=== PATIENT | male | born 1960 | race Caucasian/White ===

== ENCOUNTER 2016-11-08 13:43 | Emergency (ER) | payer MEDICARE, OTHER ==
[2016-11-08] MEDS ORDERED: Sodium Chloride 0.9% 1,000 ML IV ONE (14:13)
--- NOTE | 2016-11-08 14:19 | C.PDOC ---
History Of Present Illness 46 y/o male brought to ED who, per EMS who spoke to home health aide who called in missings person report, patient walked out of his home this morning without notifying his home health aide. Patient has a hx of DM and bipolar. Patient was found wandering the streets and was brought in by EMS. Patient denies any somatic complaints but is speaking in gibberish and appears altered. Awake and alert only to himself. Time Seen by Provider: 11/08/16 13:57 Chief Complaint (Nursing): Altered Mental Status History Per: EMS, Other (homemaker) History/Exam Limitations: Clinical Condition Onset/Duration Of Symptoms: Unknown Usual Baseline: Unknown Past Medical History Reviewed: Historical Data, Nursing Documentation, Vital Signs Vital Signs: Last Vital Signs Temp 98.0 F 11/08/16 16:05 Pulse 91 H 11/08/16 16:05 Resp 18 11/08/16 16:05 BP 128/81 11/08/16 16:05 Pulse Ox 99 11/08/16 18:36 - [facility] Procedures INJECT/INFUSE NEC (04/30/13) Family History: States: Unknown Family Hx - Social History Hx Alcohol Use: No Hx Substance Use: No - Immunization History Hx Tetanus Toxoid Vaccination: No Hx Influenza Vaccination: No Hx Pneumococcal Vaccination: No Review Of Systems Review Of Systems: ROS cannot be obtained secondary to pt's inabilty to answer questions. Physical Exam - Physical Exam Appears: Non-toxic, Other (aao x 1) Skin: Warm, Dry Head: Atraumatic, Normacephalic Eye(s): bilateral: PERRL, EOMI Neck: Normal ROM, Supple Chest: Symmetrical Cardiovascular: Rhythm Regular Respiratory: Normal Breath Sounds, No Rales, No Rhonchi, No Wheezing Gastrointestinal/Abdominal: Soft, No Tenderness, No Guarding, No Rebound Back: Normal Inspection Extremity: Normal ROM, Capillary Refill (< 2 sec.) Extremity: Bilateral: Atraumatic ED Course And Treatment - Laboratory Results Result Diagrams: 11/08/16 14:34 11/08/16 14:34 O2 Sat by Pulse Oximetry: 99 (RA) Pulse Ox Interpretation: Normal - Other Rad CXR X-Ray: Viewed By Me, Read By Radiologist Interpretation: IMPRESSION: No focal consolidation, significant pleural effusion, or definite pneumothorax identified. - CT Scan/US CT Head Other Rad Studies (CT/US): Read By Radiologist, Radiology Report Reviewed CT/US Interpretation: FINDINGS: HEMORRHAGE: No intracranial hemorrhage. BRAIN : No mass effect or edema. Intracranial atherosclerosis. Scattered periventricular and subcortical white matter hypodensities, which are nonspecific, but often seen with chronic microvascular ischemic disease. Please note that MRI with diffusion imaging is more sensitive in the detection of acute ischemic event. VENTRICLES: No hydrocephalus. CALVARIUM: Unremarkable. PARANASAL SINUSES: Unremarkable as visualized. No significant inflammatory changes. MASTOID AIR CELLS: Unremarkable as visualized. No inflammatory changes. OTHER FINDINGS: None. IMPRESSION: Nonspecific white matter changes. Medical Decision Making Medical Decision Making: No information in chart to call family for collateral information. CT Head, bloodwork, CxR, urinalysis, IV fluids ordered. 3:37PM CT head negative. Cxray negative. Labs, including trop, acetaminophen, tylenol and alcohol level negative. EKG shows NSR at 96bpm with normal intervals and no ST changes. Urine negative for infection. 4:39PM Patient has normal vitals and continues to be afebrile. No abnormalities on workup. He is ambulating around the ED without issue. Patient continues to be AAox1 but appears more oriented and coherant. Patient continues to be redirectable. Called patient's brother, Gagandeep Tobias, . He reports that patient "gets forgetful" and this appears to be his baseline mental status. Brother reports that patient is normally with home health aide till noon daily and then alone till he comes home from work. Dr. 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 7:00PM Will sign out to Diamante Viveros to continue to monitor and reevaluate in presence of patient's brother to ensure baseline mental status. Disposition - Disposition Disposition Time: 19:00 Condition: GOOD - Clinical Impression Clinical Impression: Altered mental status - Scribe Statement The provider has reviewed the documentation as recorded by the Megan Giron Provider Attestation: All medical record entries made by the Kellenibchery were at my direction and personally dictated by me. I have reviewed the chart and agree that the record accurately reflects my personal performance of the history, physical exam, medical decision making, and the department course for this patient. I have also personally directed, reviewed, and agree with the discharge instructions and disposition.
[2016-11-08] MEDS ORDERED: Sodium Chloride 0.9% 1,000 ML ONE (14:35)
[2016-11-08 14:41] LABS: BASO # 0.1 K/uL (0.0-0.2); BASO % 0.6 % (0.0-2.0); EOS % 0.4 % (0.0-4.0); HEMATOCRIT 39.6 % (35.0-51.0); LYMPH # 1.3 K/uL (1.0-4.3); LYMPH % 13.8 % (20.0-40.0); MEAN CELL VOLUME 85.4 fL (80.0-94.0); MEAN CORPUSCULAR HEMOGLOBIN 28.8 pg (27.0-31.0); MEAN CORPUSCULAR HGB CONC 33.7 g/dL (33.0-37.0); MEAN PLATELET VOLUME 9.7 fL (7.2-11.7); MONO # 0.4 K/uL (0.0-0.8); MONO % 4.8 % (0.0-10.0); NRBC % 0.1 % (0.0-2.0); RED CELL DISTRIBUTION WIDTH 12.8 % (11.5-14.5); WHITE BLOOD COUNT 9.4 K/uL (4.8-10.8)
[2016-11-08 14:49] LABS: CHLORIDE 99 mmol/L (98-107); INR 1.1; POTASSIUM 4.1 mmol/L (3.6-5.2); SODIUM 138 mmol/L (132-148)
[2016-11-08 14:51] LABS: BILIRUBIN,TOTAL 0.6 mg/dL (0.2-1.3); CARBON DIOXIDE 25 mmol/L (22-30); GFR AFRICAN-AMERICAN > 60
[2016-11-08 14:52] LABS: ALB/GLOB RATIO 1.2 (1.0-2.1); ALKALINE PHOSPHATASE 47 U/L (38-126); ALT/SGPT 22 U/L (21-72); AST/SGOT 28 U/L (17-59); BLOOD UREA NITROGEN 11 mg/dL (9-20); CALCIUM 8.9 mg/dl (8.6-10.4); GLUCOSE,RANDOM 183 mg/dL (75-110); TOTAL PROTEIN 7.1 g/dL (6.3-8.3)
[2016-11-08 14:53] LABS: ALCOHOL SERUM < 10 mg/dl (0-10)
--- NOTE | 2016-11-08 14:58 | RAD ---
HISTORY: altered COMPARISON: None available. TECHNIQUE: Chest, one view. FINDINGS: Examination limited by habitus. LUNGS: No focal consolidation. Please note that chest x-ray has limited sensitivity for the detection of pulmonary masses. PLEURA: No significant pleural effusion identified. No definite pneumothorax . CARDIOVASCULAR: The cardiomediastinal silhouette appears within normal limits of size. OSSEOUS STRUCTURES: No acute osseous abnormality identified. VISUALIZED UPPER ABDOMEN: Unremarkable. OTHER FINDINGS: None. IMPRESSION: No focal consolidation, significant pleural effusion, or definite pneumothorax identified.
--- NOTE | 2016-11-08 15:28 | CT ---
PROCEDURE: CT HEAD WITHOUT CONTRAST. HISTORY: altered COMPARISON: None available. TECHNIQUE: Axial computed tomography images were obtained through the head/brain without intravenous contrast. Radiation dose: Total exam DLP = 811.18 mGy-cm. This CT exam was performed using one or more of the following dose reduction techniques: Automated exposure control, adjustment of the mA and/or kV according to patient size, and/or use of iterative reconstruction technique. FINDINGS: HEMORRHAGE: No intracranial hemorrhage. BRAIN: No mass effect or edema. Intracranial atherosclerosis. Scattered periventricular and subcortical white matter hypodensities, which are nonspecific, but often seen with chronic microvascular ischemic disease. Please note that MRI with diffusion imaging is more sensitive in the detection of acute ischemic event. VENTRICLES: No hydrocephalus. CALVARIUM: Unremarkable. PARANASAL SINUSES: Unremarkable as visualized. No significant inflammatory changes. MASTOID AIR CELLS: Unremarkable as visualized. No inflammatory changes. OTHER FINDINGS: None. IMPRESSION: Nonspecific white matter changes.
[2016-11-08 16:15] LABS: RBC URINE 2 /hpf (0-3); URINE BILIRUBIN NEGATIVE (NEGATIVE); URINE BLOOD NEGATIVE (NEGATIVE); URINE COLOR Yellow (YELLOW); URINE GLUCOSE (UA) 3+ mg/dL (Normal); URINE KETONE 1+ mg/dL (NEGATIVE); URINE LEUKOCYTE ESTERASE NEG Leu/uL (Negative); URINE PROTEIN NEGATIVE (NEGATIVE); URINE UROBILINOGEN NORMAL mg/dL (0.2-1.0); WBC URINE < 1 /hpf (0-5)
[2016-11-08 16:24] VITALS: O2SAT 99
[2016-11-08 18:54] VITALS: BP 148/81; PULSE 99; RESP 16; TEMP 98.4
--- NOTE | 2016-11-11 12:47 | CARD ---
APPROVED REPORT EKG Measurement Heart [id number] <Conclusion> Normal sinus rhythm Normal ECG
== END 2016-11-08 19:12 | disposition home or self-care (01) ==
LOC: C.ER 13:43 → MERGE 13:43 → EDBD 13:43 → C.ER 19:12
DX: R41.82 Altered mental status, unspecified (principal)
CPT/HCPCS: 70450; 71010; 80053; 81001; 82140; 82550; 82553; 84484; 85025; 85610; 85730; 96360; 99285; G0480; J7040